=== PATIENT | male | born 1980 | race Caucasian/White ===

== ENCOUNTER 2016-08-27 20:28 | Emergency (ER) | payer OTHER ==
[~2016-08-27] VITALS: Ht 167.6 cm; Wt 72.6 kg
[2016-08-27] MEDS ORDERED: LORAZEPAM INJ 2 MG/ML VIAL IVP ONE ×2 (20:30→21:00)
[2016-08-27] MEDS ORDERED: IV NS 0.9% 500 ML BAG IV ONE ×2 (20:30→21:00)
--- NOTE | 2016-08-27 20:31 | NUR ---
TO BED [facility] C/O WITNESSED SEIZURE APPROXIMATELY 2MIN PER EMS REPORT. PT AAOX4 NO ACUTE DISTRESS NOTED, RESP EVEN AND UNLABORED. NO ORAL TRAUMA, NO URINARY OR BOWEL INCONTINENCE NOTED. PLACE PT ON CARDIAC MONITORING, CONTINUOUS POX. PLACE PT ON SEIZURE PRECAUTION WITH PADDED SIDERAILS. ER MD AT BEDSIDE TO EVAL PT WITH ORDERS RECEIVED. WILL CARRY OUT ORDERS.
[2016-08-27] MEDS ORDERED: LORAZEPAM INJ 2 MG/ML VIAL ONE (20:32)
--- NOTE | 2016-08-27 20:35 | NUR ---
STARTED SL 18G ON THE R FOREARM, BLOOD DRAWN AND SENT TO LAB.
[2016-08-27] MEDS ORDERED: IV NS 0.9% 1,000 ML ONE (20:37)
[2016-08-27] MEDS ORDERED: IV SET PRIMARY 1 EA INFUS.SET MC ONE (20:37)
--- NOTE | 2016-08-27 20:45 | NUR ---
PT MEDICATED BY RN PER ER MD ORDER.
[2016-08-27] MEDS ORDERED: ACETAMINOPHEN ES 500 MG TABLET ONE (20:50)
[2016-08-27 20:55] LABS: CALCIUM, SERUM 8.8 mg/dL (8.5-10.1); CREATININE 1.5 mg/dL (0.6-1.3); POTASSIUM 4.3 mmol/L (3.5-5.1)
[2016-08-27] MEDS ORDERED: LORAZEPAM INJ 2 MG/ML VIAL IM ONE (21:00)
[2016-08-27] MEDS ORDERED: ACETAMINOPHEN ES 500 MG TABLET PO ONE (21:00)
--- NOTE | 2016-08-27 21:18 | NUR ---
IV removed. Catheter intact and site benign. Pressure and 4x4 applied to site. No bleeding noted. Patient discharged to home in stable condition. Written and verbal after care instructions given. Patient verbalizes understanding of instruction. ambulatory with a steady gait noted. rehab facility staff at bedside to take pt home.
[2016-08-27 21:21] VITALS: BP 107/57
== END 2016-08-27 21:21 | disposition home or self-care (01) ==
LOC: ER 20:29
DX: G40.89 Other seizures (principal)
CPT/HCPCS: 36415; 80048; 96374; 99284; A4606; J2060; J7030; Z7610